=== PATIENT | female | born 1955 | race Hispanic/Latino ===

== ENCOUNTER → 2018-10-16 | Outpatient (CLI) | payer BC | END | disposition home or self-care (01) | LOC: RAH 10:47 | PROVIDERS: ATTEND Internal Medicine | DX: R13.10 Dysphagia, unspecified (principal) | CPT/HCPCS: 74230; 92611; G8996; G8997; G8998 ==

== ENCOUNTER → 2021-03-14 | Outpatient (CLI) | payer BC | END | disposition home or self-care (01) | LOC: SHCH 13:06 | PROVIDERS: ATTEND Internal Medicine Cardiovascular Disease | DX: I27.0 Primary pulmonary hypertension (principal) | CPT/HCPCS: 93306; 93356 ==

== ENCOUNTER → 2021-03-15 | Outpatient (CLI) | payer BC ==
[~2021-03-15] VITALS: Ht 154.9 cm; Wt 64.4 kg
[~2021-03-15] MED LIST: REGADENOSON 0.4 MG/5 ML PF SYG IVP SCH
== END | disposition home or self-care (01) ==
LOC: SHCH 08:47
PROVIDERS: ATTEND Internal Medicine Cardiovascular Disease
DX: I27.0 Primary pulmonary hypertension (principal)
CPT/HCPCS: 78452; 93017; 96374; A9500 ×2

== ENCOUNTER → 2021-09-06 | Outpatient (CLI) | payer BC | END | disposition home or self-care (01) | LOC: SHCH 14:31 | PROVIDERS: ATTEND Internal Medicine Cardiovascular Disease | DX: I73.9 Peripheral vascular disease, unspecified (principal) | CPT/HCPCS: 93925 ==

== ENCOUNTER → 2024-02-27 | Outpatient (CLI) | payer MEDICARE | END | disposition home or self-care (01) | LOC: SHCH 08:18 | PROVIDERS: ATTEND Internal Medicine Cardiovascular Disease | DX: I08.2 Rheumatic disorders of both aortic and tricuspid valves (principal); R07.9 Chest pain, unspecified; R00.2 Palpitations | CPT/HCPCS: 93306 ==

== ENCOUNTER → 2024-03-10 | Outpatient (CLI) | payer MEDICARE ==
[2024-03-10] MEDS: REGADENOSON 0.4 MG/5 ML PF SYG IVP ONE (13:47)
== END | disposition home or self-care (01) ==
LOC: SHCH 09:32
PROVIDERS: ATTEND Internal Medicine Cardiovascular Disease
DX: R07.9 Chest pain, unspecified (principal); R06.00 Dyspnea, unspecified
CPT/HCPCS: 78452; 96374; 93017; J2785; A9500 ×2

== ENCOUNTER 2024-11-12 05:48 | Day surgery (SDC) | payer MEDICARE ==
[~2024-11-12] VITALS: Ht 154.9 cm; Wt 71.7 kg
[2024-11-12] VITALS (12 sets, daily range): BP systolic 86–154; BP diastolic 52–70; PULSE 57–74; RESP 14–20; TEMP 97.7–98.6
[~2024-11-12 05:48] MED LIST changes: +ALBU18HF7 IH; +CHOL500051 PO; +COLC0.6C3 PO; +MACI10TA PO; +OMEP20CA12 PO; +PENT400T72 PO; -REGADENOSON 0.4 MG/5 ML PF SYG IVP SCH; +SILD20TA14 PO; +SIMV-46 PO; +TIOT4MIS8 IH; +VITA1CAP PO; +[UNRECOGNIZED DRUG - CODE] PO
[2024-11-12] MEDS: 0.9%NACL 1000ML 1,000 ML IV ONE (06:30)
[2024-11-12] MEDS ORDERED: proPOFol 10 MG/ML 20ML VIAL IV ONE (07:08)
== END 2024-11-12 08:53 | disposition home or self-care (01) ==
LOC: ENDO 05:48 → DAH 05:48 → ENDO 08:53
PROVIDERS: ATTEND Internal Medicine Gastroenterology
DX: R10.10 Upper abdominal pain, unspecified (principal); D12.3 Benign neoplasm of transverse colon; K29.70 Gastritis, unspecified, without bleeding; K44.9 Diaphragmatic hernia without obstruction or gangrene; E78.5 Hyperlipidemia, unspecified; K21.9 Gastro-esophageal reflux disease without esophagitis; Z98.890 Other specified postprocedural states; Z88.2 Allergy status to sulfonamides; Z88.8 Allergy status to other drugs, medicaments and biological substances; I10 Essential (primary) hypertension; M85.80 Other specified disorders of bone density and structure, unspecified site; Z79.899 Other long term (current) drug therapy
CPT/HCPCS: 43239; 45385; J7030 ×2; J2704; A4620; A4215; A4223; A7002; A4222; A4221; A4663; A4606; J3490